=== PATIENT | male | born 1985 | race Caucasian/White ===

== ENCOUNTER 2023-01-26 11:08 | Emergency (ER) | payer OTHER ==
[~2023-01-26] VITALS: Ht 167.6 cm; Wt 104.3 kg
[2023-01-26 11:25] VITALS: BP 138/102
[2023-01-26 11:30] VITALS: BP 136/94
[2023-01-26 11:56] VITALS: BP 136/94
[2023-01-26] MEDS ORDERED: AMOX/K CLAV875 M1 PO (11:56)
== END 2023-01-26 12:04 | disposition home or self-care (01) | DRG 159 ==
LOC: ED 11:08
DX: K04.7 Periapical abscess without sinus (principal); K08.9 Disorder of teeth and supporting structures, unspecified